=== PATIENT | female | born 1930 ===

== ENCOUNTER 2018-06-15 21:00 | Inpatient (IN) | payer MEDICARE, OTHER ==
[2018-06-15 21:00] VITALS: PULSE 87; BMI 66.6
[2018-06-15 21:24] LABS: BASO % 0.4 % (0.0-2.0); HEMOGLOBIN 10.7 g/dL (11.0-16.0); LYMPH # 1.5 K/uL (1.0-4.3); MEAN CELL VOLUME 85.9 fL (81.0-99.0); MEAN CORPUSCULAR HEMOGLOBIN 27.3 pg (27.0-31.0); MEAN CORPUSCULAR HGB CONC 31.8 g/dL (33.0-37.0); MEAN PLATELET VOLUME 8.7 fL (7.2-11.7); MONO # 0.6 K/uL (0.0-0.8); MONO % 7.8 % (0.0-10.0); NEUT # 5.8 K/uL (1.8-7.0); NEUT % 72.8 % (50.0-75.0); NRBC % 1.3 % (0.0-2.0); RBC 3.93 Mil/uL (3.80-5.20); RED CELL DISTRIBUTION WIDTH 17.6 % (11.5-14.5)
[2018-06-15 21:25] LABS: VENOUS BLOOD GAS BASE EXCESS -4.3 mmol/L (0.0-2.0); VENOUS BLOOD GAS PCO2 68 mmHg (40-60); VENOUS BLOOD GAS PO2 36 mm/Hg (30-55); VENOUS BLOOD PH 7.18 (7.32-7.43)
[2018-06-15 21:34] LABS: INR 1.4; PROTHROMBIN TIME 15.8 SECONDS (9.7-12.2)
[2018-06-15 21:37] LABS: ALB/GLOB RATIO 0.9 (1.0-2.1); ALBUMIN 3.4 g/dL (3.5-5.0); CALCIUM 8.8 mg/dl (8.6-10.4)
[2018-06-15 21:53] LABS: CK-MB 1.78 ng/mL (0.0-3.38); TROPONIN I 0.681 ng/mL (0.00-0.120)
[2018-06-15] MEDS ORDERED: Metoprolol 1 mg/ml Inj IVP ONE ×2 (22:18→22:34)
--- NOTE | 2018-06-15 22:38 | C.PDOC ---
History Of Present Illness 87 y/o F [place] D[place]/DNI BIBEMS with tachycardia, respiratory distress, lethargy noted today. HPI/ROS limited by patient's condition. Time Seen by Provider: 06/15/18 21:30 Chief Complaint (Nursing): Altered Mental Status Past Medical History Vital Signs: Last Vital Signs Temp 99.2 F 06/15/18 21:05 Pulse 123 H 06/16/18 00:25 Resp 32 H 06/16/18 00:25 BP 155/89 H 06/16/18 00:25 Pulse Ox 100 06/16/18 00:43 - Medical History PMH: Anxiety, Atrial Fibrillation, CHF, Dementia, Deep Vein Thrombosis, HTN, Hypercholesterolemia, Hyperlipidemia, Hypothyroidism, Chronic Kidney Disease Denies: Asthma, HIV - [facility] Procedures EXERCISE TREATMENT OF MUSCULOSK WHOLE USING ASSIST EQUIPMENT (04/22/18) GAIT TRAINING/AMBULAT TREATMENT USING ASSIST EQUIPMENT (04/22/18) HOME MANAGEMENT TREATMENT USING ASSIST EQUIPMENT (04/22/18) INSERTION OF INFUSION DEV INTO SUP VENA CAVA, PERC APPROACH (05/09/18) INTRODUCE OF OTH THERAP SUBST INTO RESP TRACT, VIA OPENING (04/17/18) TRANSFUSE NONAUT RED BLOOD CELLS IN PERIPH VEIN, PERC (05/09/18) Family History: States: Unknown Family Hx - Social History Hx Alcohol Use: No Hx Substance Use: No Review Of Systems Review Of Systems: ROS cannot be obtained secondary to pt's inabilty to answer questions. Physical Exam - Physical Exam Additional Physical Exam Comments: Constitutional: Lethargic. Tachypneic. Head: Normocephalic. Atraumatic. Eyes: No scleral icterus. ENT: Moist mucous membranes. Neck: Supple. Cardiovascular: Tachycardic rate. Radial pulse 2+ bilaterally. Chest: No deformity. Respiratory: Rhonchi bilaterally. GI: Soft. Back: No CVA tenderness. Musculoskeletal: No tenderness of extremities. Pitting edema bilaterally. Skin: No rash. Neurologic: Lethargic, responds to noxious stimuli. ED Course And Treatment - Laboratory Results Result Diagrams: 06/15/18 21:19 06/15/18 21:19 O2 Sat by Pulse Oximetry: 100 Medical Decision Making Medical Decision Making: EKG Atrial fibrillation, 150 bpm, no ST elevations. CXR IMPRESSION: 1. Evaluation limited by low lung volumes. 2. Mild pulmonary vascular congestion, probable small left greater than right pleural effusions, and left greater than right bibasilar airspace disease with differential diagnosis of layering pleural fluid/atelectasis, aspiration, and/or infection. 3. Cardiomegaly. Lopressor IV administered for rapid afib. Most likely differential diagnosis is CHF exacerbation, treated with lasix. Also possible secondary infection but will avoid IVF due to CHF and DNI status. Aspirin given rectally, found to have elevated troponin. UTI also diagnosed, Cefepime initiated. Discussed patient's condition and prognosis with son at bedside. Dr. Rosanna Osorio accepts patient to his service on telemetry and recommends Dr. Perez for cardiology consultation. Disposition Discussed With .: Leonor Osorio Doctor Will See Patient In The: Hospital - Disposition Disposition: HOSPITALIZED Disposition Time: 22:20 Condition: SERIOUS - Clinical Impression Clinical Impression: Atrial fibrillation with tachycardic ventricular rate, CHF exacerbation, Elevated troponin, UTI (urinary tract infection)
[2018-06-15 23:24] LABS: URINE BACTERIA MANY (<OCC); URINE BILIRUBIN NEGATIVE (NEGATIVE); URINE BLOOD 2+ (NEGATIVE); URINE CLARITY Hazy (Clear); URINE COLOR YELLOW (YELLOW); URINE GLUCOSE (UA) NORMAL (Normal); URINE HYALINE CAST >20 /lpf (0-2); URINE LEUKOCYTE ESTERASE 2+ Leu/uL (Negative); URINE PROTEIN 2+ mg/dL (NEGATIVE); URINE UROBILINOGEN NORMAL mg/dL (0.2-1.0); WBC CLUMPS FEW /hpf
[2018-06-15] MEDS ORDERED: Cefepime IV 1 gm in Dextrose 1 GM/50 ML BAG IVPB STA (23:28)
[2018-06-16] MEDS ORDERED: Metoprolol 1 mg/ml Inj IVP ONE ×3 (01:02→08:09)
[2018-06-16 02:57] LABS: ABG ALLEN TEST POS; ARTERIAL BLOOD GAS HCO3 23.1 mmol/L (21-28); ARTERIAL BLOOD GAS PCO2 72 mm/Hg (35-45); ARTERIAL BLOOD GAS PH 7.19 (7.35-7.45); ARTERIAL BLOOD GAS PO2 188 mm/Hg (80-100); ARTERIAL BLOOD GAS TCO2 29.7 mmol/L (22-28)
--- NOTE | 2018-06-16 03:31 | CP.PCM.PN ---
Subjective - Date & Time of Evaluation Date of Evaluation: 06/16/18 Time of Evaluation: 03:22 - Subjective Subjective: Patient in resp distress, with abg/vbg suggesting resp acidosis, hypoxia, chynes -moreira like breathing, patient is exhausted, lethargic but arousable without communication, HR afib 130-160/min in range, has been started on empiric abx, on 100% NRB. Has POLST DNR/DNI and d/w ER physician Dr Hawkins who had conversation with patient's son and DNR/DNI status and patient resp distress and critical nature discussed and confirmed. 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 Plan Nasal turmpet for prn suction and nasal air way Low pressure bipap in the setting 10/5/50% o2 will be titrated, has some risk of aspiration but risk is low with low pressure and nasal trumpet. Patient has been started on abx by primary team. Primary team will be notified by nursing. If patient gets worse with this treatment then may benefit with comfort measures. Objective - Vital Signs/Intake and Output Vital Signs (last 24 hours): Temp Pulse Resp BP Pulse Ox 99.2 F 136 H 43 H 155/89 H 100 06/15/18 21:05 06/16/18 01:00 06/16/18 01:00 06/16/18 00:25 06/16/18 01:22 - Medications Medications: Current Medications Enoxaparin Sodium (Lovenox) 40 mg SC DAILY JERRICA Furosemide (Lasix) 40 mg IVP DAILY JERRICA Pantoprazole Sodium (Protonix Inj) 40 mg IVP DAILY JERRICA - Labs Labs: 06/15/18 21:19 06/15/18 21:19 PT 15.8 SECONDS (9.7-12.2) H 06/15/18 21:19 INR 1.4 06/15/18 21:19 APTT 25 SECONDS (21-34) 06/15/18 21:19
[2018-06-16 08:28] LABS: CK-MB 1.46 ng/mL (0.0-3.38)
--- NOTE | 2018-06-16 09:10 | RAD ---
Date of service: 06/15/2018 HISTORY: HYPOTNESION, UNRESPONSIVE COMPARISON: No prior. FINDINGS: LUNGS: There are low lung volumes. There is mild pulmonary venous congestion. There is airspace disease in both lower lobes. PLEURA: Bilateral pleural effusions, larger on the left. No pneumothorax CARDIOVASCULAR: Moderate cardiomegaly. OSSEOUS STRUCTURES: No significant abnormalities. VISUALIZED UPPER ABDOMEN: Normal. OTHER FINDINGS: There is a hiatal hernia. IMPRESSION: Moderate cardiomegaly, mild pulmonary venous congestion and pleural effusions, larger on the left. Airspace disease in the lower lobes, worse on the left may represent atelectasis or pneumonia. Follow-up is advised.
[2018-06-16] MEDS ORDERED: Enoxaparin 40 mg Syringe SC SCH (10:00)
[2018-06-16 10:08] LABS: TROPONIN I 0.579 ng/mL (0.00-0.120)
[2018-06-16 10:57] VITALS: TEMP 97.5
[2018-06-16 11:10] LABS: BASO % 0.4 % (0.0-2.0); EOS % 0.1 % (0.0-4.0); HEMOGLOBIN 10.2 g/dL (11.0-16.0); LYMPH # 1.2 K/uL (1.0-4.3); LYMPH % 11.6 % (20.0-40.0); MEAN CELL VOLUME 87.4 fL (81.0-99.0); MEAN CORPUSCULAR HEMOGLOBIN 26.4 pg (27.0-31.0); MEAN CORPUSCULAR HGB CONC 30.2 g/dL (33.0-37.0); MEAN PLATELET VOLUME 8.9 fL (7.2-11.7); MONO # 0.8 K/uL (0.0-0.8); MONO % 7.9 % (0.0-10.0); NEUT # 8.5 K/uL (1.8-7.0); NRBC % 2.5 % (0.0-2.0); RBC 3.87 Mil/uL (3.80-5.20); RED CELL DISTRIBUTION WIDTH 18.5 % (11.5-14.5); WHITE BLOOD COUNT 10.7 K/uL (4.8-10.8)
[2018-06-16 12:10] LABS: ALBUMIN 3.3 g/dL (3.5-5.0); CALCIUM 8.8 mg/dl (8.6-10.4)
[2018-06-16 15:52] VITALS: BP 79/59; RESP 56
[2018-06-16 16:01] VITALS: PULSE 135; O2SAT 98
--- NOTE | 2018-06-16 18:45 | CP.PCM.HP ---
Past Patient History - Past Medical History & Family History Past Medical History?: Yes - Past Social History Smoking Status: Unknown If Ever Smoked - CARDIAC Hx Atrial Fibrillation: Yes Hx Congestive Heart Failure: Yes Hx Hypercholesterolemia: Yes Hx Hypertension: Yes - PULMONARY Hx Asthma: No - NEUROLOGICAL Hx Dementia: Yes - HEENT Hx HEENT Problems: No - RENAL Hx Chronic Kidney Disease: Yes - ENDOCRINE/METABOLIC Hx Hypothyroidism: Yes - HEMATOLOGICAL/ONCOLOGICAL Hx Human Immunodeficiency Virus (HIV): No - INTEGUMENTARY Hx Dermatological Problems: No - MUSCULOSKELETAL/RHEUMATOLOGICAL Hx Musculoskeletal Disorders: No Hx Falls: No - GASTROINTESTINAL Hx Gastrointestinal Disorders: Yes Hx Gastroesophageal Reflux: Yes - GENITOURINARY/GYNECOLOGICAL Hx Genitourinary Disorders: No - PSYCHIATRIC Hx Anxiety: Yes Hx Substance Use: No - SURGICAL HISTORY Hx Surgeries: Yes Other/Comment: IVC filter - ANESTHESIA Hx Anesthesia: Yes Hx Anesthesia Reactions: No Hx Malignant Hyperthermia: No Meds Allergies/Adverse Reactions: Allergies Allergy/AdvReac Type Severity Reaction Status Date / Time No Known Allergies Allergy Verified 06/15/18 21:13 Physical Exam - Constitutional Appears: Well - Head Exam Head Exam: ATRAUMATIC, NORMAL INSPECTION, NORMOCEPHALIC - Eye Exam Eye Exam: EOMI, Normal appearance, PERRL Pupil Exam: NORMAL ACCOMODATION, PERRL - ENT Exam ENT Exam: Mucous Membranes Moist, Normal Exam - Neck Exam Neck exam: Positive for: Normal Inspection - Respiratory Exam Respiratory Exam: Decreased Breath Sounds - Cardiovascular Exam Cardiovascular Exam: REGULAR RHYTHM, +S1, +S2 - GI/Abdominal Exam GI & Abdominal Exam: Diminished Bowel Sounds, Soft - Rectal Exam Rectal Exam: Deferred Results - Vital Signs Recent Vital Signs: Last Vital Signs Temp 97.5 F L 06/16/18 15:47 Pulse 135 H 06/16/18 16:00 Resp 56 H 06/16/18 15:47 BP 79/59 L 06/16/18 15:47 Pulse Ox 98 06/16/18 16:00 - Labs Result Diagrams: 06/16/18 11:07 06/16/18 11:07 Labs: Laboratory Results - last 24 hr 06/15/18 06/15/18 06/15/18 21:12 21:19 21:19 WBC 8.0 RBC 3.93 Hgb 10.7 L Hct 33.8 L MCV 85.9 MCH 27.3 MCHC 31.8 L RDW 17.6 H Plt Count 344 MPV 8.7 Neut % (Auto) 72.8 Lymph % (Auto) 19.0 L Parker % (Auto) 7.8 Eos % (Auto) 0.0 Baso % (Auto) 0.4 Neut # (Auto) 5.8 Lymph # (Auto) 1.5 Parker # (Auto) 0.6 Eos # (Auto) 0.0 Baso # (Auto) 0.0 PT 15.8 H INR 1.4 APTT 25 Puncture Site pCO2 pO2 HCO3 ABG pH ABG Total CO2 ABG O2 Saturation ABG Base Excess Sabino Test ABG Potassium VBG pH VBG pCO2 VBG HCO3 VBG Total CO2 VBG O2 Sat (Calc) VBG Base Excess VBG Potassium A-a O2 Difference Respiratory Index Glucose Lactate Liter Flow FiO2 Crit Value Called To Crit Value Called By Crit Value Read Back Blood Gas Notified Time Sodium Potassium Chloride Carbon Dioxide Anion Gap BUN Creatinine Est GFR ( Amer) Est GFR (Non-Af Amer) POC Glucose (mg/dL) 207 H Random Glucose Calcium Total Bilirubin AST ALT Alkaline Phosphatase Total Creatine Kinase CK-MB (Mass) Troponin I NT-Pro-B Natriuret Pep Total Protein Albumin Globulin Albumin/Globulin Ratio Arterial Blood Potassium Venous Blood Potassium Urine Color Urine Clarity Urine pH Ur Specific [place] Urine Protein Urine Glucose (UA) Urine Ketones Urine Blood Urine Nitrate Urine Bilirubin Urine Urobilinogen Ur Leukocyte Esterase Urine WBC (Auto) Urine RBC (Auto) Urine WBC Clumps (Auto) Urine Bacteria Hyaline Casts 06/15/18 06/15/18 06/15/18 21:19 21:20 23:08 WBC RBC Hgb Hct MCV MCH MCHC RDW Plt Count MPV Neut % (Auto) Lymph % (Auto) Parker % (Auto) Eos % (Auto) Baso % (Auto) Neut # (Auto) Lymph # (Auto) Parker # (Auto) Eos # (Auto) Baso # (Auto) PT INR APTT Puncture Site pCO2 pO2 36 HCO3 ABG pH ABG Total CO2 ABG O2 Saturation ABG Base Excess Sabino Test ABG Potassium VBG pH 7.18 L* VBG pCO2 68 H* VBG HCO3 20.4 VBG Total CO2 27.5 VBG O2 Sat (Calc) 62.4 VBG Base Excess -4.3 L VBG Potassium 4.4 A-a O2 Difference Respiratory Index Glucose 174 H Lactate 2.5 H Liter Flow FiO2 Crit Value Called To Dr. holley Crit Value Called By Mary Lou garrett rcp Crit Value Read Back Y Blood Gas Notified Time 2124 Sodium 148 149.0 H Potassium 5.6 H Chloride 107 115.0 H Carbon Dioxide 29 Anion Gap 18 BUN 19 H Creatinine 1.2 Est GFR ( Amer) 51 Est GFR (Non-Af Amer) 42 POC Glucose (mg/dL) Random Glucose 212 H Calcium 8.8 Total Bilirubin 0.4 AST 233 H D ALT 63 H Alkaline Phosphatase 135 H D Total Creatine Kinase 45 CK-MB (Mass) 1.78 Troponin I 0.6810 H* NT-Pro-B Natriuret Pep 16429 H Total Protein 7.1 Albumin 3.4 L Globulin 3.7 Albumin/Globulin Ratio 0.9 L Arterial Blood Potassium Venous Blood Potassium 4.4 Urine Color Yellow Urine Clarity Hazy Urine pH 5.0 Ur Specific [place] 1.027 Urine Protein 2+ H Urine Glucose (UA) Normal Urine Ketones Negative Urine Blood 2+ H Urine Nitrate Negative Urine Bilirubin Negative Urine Urobilinogen Normal Ur Leukocyte Esterase 2+ H Urine WBC (Auto) 31 H Urine RBC (Auto) 23 H Urine WBC Clumps (Auto) Few H Urine Bacteria Many H Hyaline Casts >20 H 06/16/18 06/16/18 06/16/18 02:53 07:24 11:07 WBC 10.7 RBC 3.87 Hgb 10.2 L Hct 33.8 L MCV 87.4 MCH 26.4 L MCHC 30.2 L RDW 18.5 H Plt Count 337 MPV 8.9 Neut % (Auto) 80.0 H Lymph % (Auto) 11.6 L Parker % (Auto) 7.9 Eos % (Auto) 0.1 Baso % (Auto) 0.4 Neut # (Auto) 8.5 H Lymph # (Auto) 1.2 Parker # (Auto) 0.8 Eos # (Auto) 0.0 Baso # (Auto) 0.0 PT INR APTT Puncture Site Lra pCO2 72 H* pO2 188 H HCO3 23.1 ABG pH 7.19 L* ABG Total CO2 29.7 H ABG O2 Saturation 100.0 H ABG Base Excess -2.4 L Sabino Test Pos ABG Potassium 5.4 H VBG pH VBG pCO2 VBG HCO3 VBG Total CO2 VBG O2 Sat (Calc) VBG Base Excess VBG Potassium A-a O2 Difference 435.0 Respiratory Index 2.3 Glucose 171 H Lactate 1.5 Liter Flow 15.0 FiO2 100.0 Crit Value Called To Dr morales Crit Value Called By Rojelio garzon product engineer Crit Value Read Back Y Blood Gas Notified Time 257 Sodium 145.0 Potassium Chloride 113.0 H Carbon Dioxide Anion Gap BUN Creatinine Est GFR ( Amer) Est GFR (Non-Af Amer) POC Glucose (mg/dL) Random Glucose Calcium Total Bilirubin AST ALT Alkaline Phosphatase Total Creatine Kinase 38 CK-MB (Mass) 1.46 Troponin I 0.5790 H* NT-Pro-B Natriuret Pep Total Protein Albumin Globulin Albumin/Globulin Ratio Arterial Blood Potassium 5.4 H Venous Blood Potassium Urine Color Urine Clarity Urine pH Ur Specific [place] Urine Protein Urine Glucose (UA) Urine Ketones Urine Blood Urine Nitrate Urine Bilirubin Urine Urobilinogen Ur Leukocyte Esterase Urine WBC (Auto) Urine RBC (Auto) Urine WBC Clumps (Auto) Urine Bacteria Hyaline Casts 06/16/18 11:07 WBC RBC Hgb Hct MCV MCH MCHC RDW Plt Count MPV Neut % (Auto) Lymph % (Auto) Parker % (Auto) Eos % (Auto) Baso % (Auto) Neut # (Auto) Lymph # (Auto) Parker # (Auto) Eos # (Auto) Baso # (Auto) PT INR APTT Puncture Site pCO2 pO2 HCO3 ABG pH ABG Total CO2 ABG O2 Saturation ABG Base Excess Sabino Test ABG Potassium VBG pH VBG pCO2 VBG HCO3 VBG Total CO2 VBG O2 Sat (Calc) VBG Base Excess VBG Potassium A-a O2 Difference Respiratory Index Glucose Lactate Liter Flow FiO2 Crit Value Called To Crit Value Called By Crit Value Read Back Blood Gas Notified Time Sodium 147 Potassium 6.5 H* Chloride 107 Carbon Dioxide 27 Anion Gap 19 BUN 25 H Creatinine 1.6 H Est GFR ( Amer) 37 Est GFR (Non-Af Amer) 30 POC Glucose (mg/dL) Random Glucose 175 H Calcium 8.8 Total Bilirubin 0.5 AST 360 H D ALT 92 H D Alkaline Phosphatase 156 H Total Creatine Kinase CK-MB (Mass) Troponin I NT-Pro-B Natriuret Pep Total Protein 6.8 Albumin 3.3 L Globulin 3.4 Albumin/Globulin Ratio 1.0 Arterial Blood Potassium Venous Blood Potassium Urine Color Urine Clarity Urine pH Ur Specific [place] Urine Protein Urine Glucose (UA) Urine Ketones Urine Blood Urine Nitrate Urine Bilirubin Urine Urobilinogen Ur Leukocyte Esterase Urine WBC (Auto) Urine RBC (Auto) Urine WBC Clumps (Auto) Urine Bacteria Hyaline Casts
--- NOTE | 2018-06-16 19:06 | CP.PCM.PRO ---
Pronouncement of Note - Clinical Findings Physical Exam: No Response Verbal/Painful Stimuli, Absent Heart & Breath Sounds , No Pupillary Light Reflex, No Corneal Reflex, Pupils Fixed & Dilated, Absence of Vital Signs - Pronouncement Time Time of Pronouncement of : 18:30 - Notifications Pronouncement Notifications: Family Notified, Atending Notified Sanitation Director Notified: Yes - [place] [id number]
--- NOTE | 2018-06-18 07:32 | CARD ---
APPROVED REPORT Date of service: 06/15/2018 EKG Measurement Heart [id number] <Conclusion> Atrial fibrillation with rapid ventricular response Nonspecific T wave abnormality Abnormal ECG
--- NOTE | 2018-06-20 19:08 | PQF ---
PROVIDER RESPONSE TEXT: Acute on chronic combined chf REVIEWER QUERY TEXT: CHF Acuity and Type Congestive Heart Failure is documented in the Medical Record. Please document the type and acuity (in cludes probable or suspected) Such as: Type: -- Systolic -- Diastolic -- Combined -- Other, please specify Acuity: -- Acute -- Chronic -- Acute on chronic -- Other, please specify Also please document the underlying cause of the CHF (includes probable or suspected) The patient's Clinical Indicators include: 87 Y/O Female from [place] presented with Tachycardia, respiratory Distress, Lethargy noted today. HPI/RO S limited per patients condition. PMH of Atrial Fibrillation, HTN/CHF/CKD ; Hypothyroidism , Hyperc holesterolemia. ProBnp on admission [id number] Query created by: Dejah Peña on 06/17/2018 9:34 AM Electronically signed by: Leonor SOCAR 06/20/2018 7:05 PM
== END 2018-06-16 21:12 | DRG 291 ==
LOC: C.ER 21:00 → C.9E 22:38 → C.5S 06-16 00:01
PROVIDERS: ADMIT Internal Medicine Nephrology; ATTEND Internal Medicine Nephrology
PROC: 5A09357 Assistance with Respiratory Ventilation, Less than 24 Consecutive Hours, Continuous Positive Airway Pressure (ICD-10-PCS; principal; 2018-06-16)
DX: I13.0 Hypertensive heart and chronic kidney disease with heart failure and stage 1 through stage 4 chronic kidney disease, or unspecified chronic kidney disease (principal); I50.43 Acute on chronic combined systolic (congestive) and diastolic (congestive) heart failure; N39.0 Urinary tract infection, site not specified; E87.2 Acidosis; E03.9 Hypothyroidism, unspecified; E66.9 Obesity, unspecified; Z68.36 Body mass index [BMI] 36.0-36.9, adult; E78.00 Pure hypercholesterolemia, unspecified; F03.90 Unspecified dementia, unspecified severity, without behavioral disturbance, psychotic disturbance, mood disturbance, and anxiety; I48.91 Unspecified atrial fibrillation; K21.9 Gastro-esophageal reflux disease without esophagitis; N18.9 Chronic kidney disease, unspecified; Z66 Do not resuscitate; F41.9 Anxiety disorder, unspecified